=== PATIENT | female | born 1960 | race Caucasian/White ===

== ENCOUNTER 2018-12-02 22:48 | Inpatient (IN) | payer OTHER ==
[~2018-12-02] VITALS: Ht 147.3 cm; Wt 83.0 kg
[2018-12-03] VITALS: BP 160/80; PULSE 82; RESP 18
[2018-12-03] MEDS: GABAPENTIN 300 MG CAP PO SCH ×2 (01:00→21:11)
[2018-12-03] MEDS ORDERED: GLUCAGON 1 MG INJ IM PRN (01:00)
[2018-12-03] MEDS ORDERED: ONDANSETRON 4 MG INJ IV PRN (01:00)
[2018-12-03] MEDS ORDERED: GLUCOSE GEL 15 GRAM TUBE PO PRN ×2 (01:00)
[2018-12-03] MEDS ORDERED: GLUCOSE GEL 15 GRAM TUBE BUCCAL PRN (01:00)
[2018-12-03] MEDS ORDERED: DEXTROSE 50% 50 ML SYRINGE IV PRN ×2 (01:00)
[2018-12-03] MEDS: SOD CHLORIDE 0.9% 1,000 ML IV SCH ×2 (01:38→19:38)
[2018-12-03 02:00] VITALS: BP 137/63; PULSE 87; RESP 18
[2018-12-03] MEDS: ACCU-CHEK XX SCH (02:00)
[2018-12-03] MEDS: PANTOPRAZOLE 40 MG INJ IV SCH (05:33)
[2018-12-03] MEDS: ASPIRIN (EC) 81 MG TAB PO SCH (08:17)
[2018-12-03] MEDS: BENAZEPRIL 40 MG TAB PO SCH (08:17)
[2018-12-03] MEDS: INSULIN ASPART [NOVOLOG] 3 ML PEN SC SCH ×5 (08:19→21:20)
[2018-12-03 08:34] VITALS: BP 140/66; PULSE 99; RESP 18
[2018-12-03] MEDS: EZETIMIBE 10 MG TAB PO SCH (10:47)
[2018-12-03 14:12] VITALS: BP 134/62; PULSE 88; RESP 18
[2018-12-03] MEDS ORDERED: ASC500 PO (14:17)
[2018-12-03] MEDS ORDERED: GABA300C16 PO (14:17)
[2018-12-03] MEDS ORDERED: FER325 PO (14:18)
[2018-12-03] MEDS ORDERED: HYDR25TA6 PO (14:19)
[2018-12-03] MEDS ORDERED: OMEG1CAP90 PO (14:21)
[2018-12-03] MEDS ORDERED: AMLO-147 PO (14:22)
[2018-12-03] MEDS ORDERED: DULO30CA47 PO (14:24)
[2018-12-03] MEDS ORDERED: ASPI-817 PO (14:24)
[2018-12-03] MEDS ORDERED: LANT3I SC (14:27)
[2018-12-03] MEDS ORDERED: ATOR-2 PO (14:27)
[2018-12-03] MEDS: CEFTRIAXONE 1 GM/50 ML (PMX) 50 ML IVPB SCH (16:15)
--- NOTE | 2018-12-03 16:47 | HP ---
DATE OF ADMISSION: 12/02/2018 REASON FOR ADMISSION: The patient is transferred from [facility] due to insurance reasons. HISTORY OF PRESENT ILLNESS: This is a 58-year-old female with a past medical history of diabetes, hy pertension, hyperlipidemia, who presented to the [facility] on 12/02/2018 after being earl t by the family member. There, according to the patient, every time she is coughing, she is having p ain in the back. The patient has been coughing a lot. According to the patient, also she had episod e of nausea and vomiting yesterday. She went to [facility] where they checked for her tropo candelario which was negative. Patient had sodium 131, potassium 4.2, chloride 92, bicarbonate 24, BUN of 2 5, creatinine 1.49. Lipase was, however, elevated at 96. UA showed 500 glucose, nitrite negative. White count 6.0, hemoglobin 13.2, platelet count 240. The patient had a CT of the abdomen and pelvis that showed probable noncalcified and calcified granuloma in both lung bases, considerable stool dif fusely throughout the colon, hysterectomy and chest x-ray with some bibasilar atelectasis and the pat ient was sent in due to insurance reasons. LFTs were within normal limit. The patient was sent for dehydration. PAST MEDICAL HISTORY: 1. Diabetes. 2. Hypertension. 3. Hyperlipidemia. 4. Obesity. 5. Peripheral neuropathy. ALLERGIES: NONE. 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 HOME MEDICATIONS: 1. Aspirin. 2. Lipitor 80. 3. Benazepril 40. 4. Zetia 10. 5. Gabapentin. 6. Hydrochlorothiazide 25. 7. Lantus. 8. Janumet. SOCIAL HISTORY: The patient used to smoke before, stopped smoking many years ago. Denies any alcoho l or any recreational drug use. Currently lives at home with her mom and sister. FAMILY HISTORY: No history of heart disease. REVIEW OF SYSTEMS: The patient complained of chronic cough. Has some abdominal pain to the back. H as some episodes of vomiting. Denied any headache, any blurry vision, any chest pain, any shortness of breath, any orthopnea, PND, any lower extremity edema. Denies any hematemesis, any melena, any bl ood per rectum. PHYSICAL EXAMINATION: VITAL SIGNS: Currently temperature 100.6, pulse 88, respirations 18, blood pressure 134/62, saturati ng 97% on room air. GENERAL: The patient is awake, alert, oriented, does not appear to be in any acute distress. HEENT: Pupils equal, round, reactive to light. NECK: Supple. No JVD. HEART: Regular rate and rhythm. LUNGS: Clear to auscultation bilaterally. ABDOMEN: Soft, some tenderness present in the epigastric region. EXTREMITIES: No clubbing, cyanosis, or edema. LABORATORY DATA: Sodium 138, potassium 4.1, chloride 98, bicarbonate 28, BUN of 21, creatinine 0.98, glucose is 281. LFTs within normal limit. White count of 4.6, hemoglobin 12.9, platelet count of 2 17. IMAGIN. The patient had a chest x-ray there that showed probable atelectasis. 2. The patient had a UA at [facility] which was negative. The patient also had a CT of the abdomen and pelvis that showed status post hysterectomy, stool burden and probable noncalcified and calcified granuloma in both the lung bases, old granulomatous calcification. ASSESSMENT: This is a 58-year-old female presenting with: 1. Abdominal pain radiating to the back. The patient had elevated lipase at the outside hospital, L FTs within normal limits, likely secondary to pancreatitis. 2. Fevers, source questionable, possible pneumonia. We will repeat a UA. 3. Diabetes, uncontrolled. 4. Acute renal failure, likely secondary to dehydration, which is resolved. 5. Hypertension. 6. Hyperlipidemia. 7. Obesity. 8. Peripheral neuropathy. PLAN: At this period of time, the patient is admitted to med-surg. We will continue the patient on home medications. Will start the patient on IV antibiotics. Will send for UA, urine cultures, blood cultures. We will also get an abdominal ultrasound to see the possibility of gallstones. We will r epeat the lipase. Rest of the treatment will depend on the patient's hospitalization course. Dictated By: ABIGAIL ATKINSON/YULI Conf#: [id number] DID#: [id number] CC: HEATHER BURRELL MD;*End*
[2018-12-03] MEDS ORDERED: INSULIN GLARGINE [LANTus] (100 UNITS/ML) SYG SC SCH (20:00)
[2018-12-03 20:04] VITALS: BP 138/65; PULSE 91; RESP 16
[2018-12-03] MEDS: ATORVASTATIN 80 MG TAB PO SCH (21:11)
[2018-12-03] MEDS: ACETAMINOPHEN 325 MG TAB PO PRN (21:11)
[2018-12-04] MEDS ORDERED: ACCU-CHEK XX SCH (02:00)
[2018-12-04] MEDS: ACCU-CHEK XX SCH (02:00)
[2018-12-04 02:41] VITALS: BP 104/56; PULSE 80; RESP 18
[2018-12-04] MEDS: PANTOPRAZOLE 40 MG INJ IV SCH (06:27)
[2018-12-04 08:00] VITALS: BP 173/74; PULSE 87; RESP 20
[2018-12-04] MEDS: INSULIN ASPART [NOVOLOG] 3 ML PEN SC SCH ×6 (08:02→18:00)
[2018-12-04] MEDS: ASPIRIN (EC) 81 MG TAB PO SCH (08:03)
[2018-12-04] MEDS: ACETAMINOPHEN 325 MG TAB PO PRN (08:03)
[2018-12-04] MEDS: EZETIMIBE 10 MG TAB PO SCH (08:03)
[2018-12-04] MEDS: BENAZEPRIL 40 MG TAB PO SCH (08:04)
[2018-12-04 09:30] VITALS: BP 165/85; PULSE 80; RESP 16
[2018-12-04] MEDS: metroNIDAZOLE 500 MG/NS (PMX) 100 ML IVPB SCH ×3 (11:14→21:48)
--- NOTE | 2018-12-04 11:23 | PN ---
Date/Time of Note Date/Time of Note DATE: 12/04/18 TIME: 11:15 Assessment/Plan VTE Prophylaxis Risk score (from Ns)>0 risk: 3 SCD applied (from Ns): Yes Pharmacological prophylaxis: LMWH Lines/Catheters IV Catheter Type (from [facility]): Peripheral IV Assessment/Plan Hospital Course 1. Abdominal pain radiating to the back. The patient had elevated lipase at the outside hospital, LFTs within normal limits, likely secondary to pancreatitis. 2. Fevers, source questionable, possible pneumonia. 3. Diabetes mellitus type II, uncontrolled. 4. Acute renal failure, likely secondary to dehydration, which is resolved. 5. Hypertension. 6. Hyperlipidemia. 7. Obesity. 8. Peripheral neuropathy. 9. S/p hysterectomy Assessment/Plan - med-surg. -waiting for abd. US -pt might need MRCP -chest xray clear -hypoglycemic control -GI dr Sanchez , aware - continue the patient on home medications. -c/w IV antibiotics metronidazole/Rocephin - UA is negative - urine cultures waiting , - blood cultures drawn. - abdominal ultrasound to see the possibility of gallstones. - lipase. -DVT prophylaxis Start Lovenox tmv -GI prophylaxis Protonix Result Diagram: 12/04/18 0551 12/04/18 0551 Results 24hrs Laboratory Tests Test 12/03/18 12:09 12/03/18 16:54 12/03/18 21:10 12/03/18 22:50 Bedside Glucose 244 H 298 H 256 H Urine Color YELLOW Urine Clarity CLEAR Urine pH 5.0 Urine Specific 1.021 [place] Urine Ketones TRACE A Urine Nitrite NEGATIVE Urine Bilirubin NEGATIVE Urine Urobilinogen NEGATIVE Urine Leukocyte NEGATIVE Esterase Urine Microscopic 1 RBC Urine Microscopic 2 WBC Urine Bacteria FEW A Urine Mucus FEW A Urine Hemoglobin NEGATIVE Urine Glucose 3+ H Urine Total Protein 2+ H Test 12/04/18 01:40 12/04/18 05:51 12/04/18 07:59 Bedside Glucose 232 H 318 H White Blood Count 5.5 Red Blood Count 4.08 L Hemoglobin 11.9 L Hematocrit 37.6 Mean Corpuscular 92.2 Volume Mean Corpuscular 29.2 Hemoglobin Mean Corpuscular 31.6 L Hemoglobin Concent Red Cell 12.2 Distribution Width Platelet Count 188 Mean Platelet Volume 10.4 Immature 0.400 Granulocytes % Neutrophils % 69.6 Lymphocytes % 18.6 Monocytes % 11.2 H Eosinophils % 0.0 Basophils % 0.2 Nucleated Red Blood 0.0 Cells % Immature 0.020 Granulocytes # Neutrophils # 3.9 Lymphocytes # 1.0 Monocytes # 0.6 Eosinophils # 0.0 Basophils # 0.0 Nucleated Red Blood 0.0 Cells # Sodium Level 137 Potassium Level 4.5 Chloride Level 103 Carbon Dioxide Level 27 Anion Gap 7 Blood Urea Nitrogen 20 Creatinine 0.89 Est Glomerular > 60 Filtrat Rate mL/min Glucose Level 270 H Calcium Level 7.9 L Phosphorus Level 2.6 Magnesium Level 2.0 Subjective 24 Hr Interval Summary Respiratory: no complaints Gastrointestinal: decreased appetite, nausea; No no complaints, No blood, No diarrhea, No flatus, No passing stool, No vomiting, No other Genitourinary: no complaints Exam/Review of Systems Exam Vitals Vital Signs Date Temp Pulse Resp B/P (MAP) Pulse Ox O2 O2 Flow FiO2 Time Delivery Rate 12/04/18 98.3 09:00 12/04/18 87 20 173/74 96 08:00 (107) 12/04/18 Room Air 02:41 Intake and Output 12/03/18 12/03/18 12/04/18 1515:00 23:00 07:00 IntakeIntake Total 820 ml 1420 ml 750 ml OutputOutput Total 450 ml BalanceBalance 820 ml 970 ml 750 ml Constitutional: alert, oriented Respiratory: clear to auscultation Cardiovascular: regular rate and rhythm Gastrointestinal: soft, nl liver, spleen, non-tender, ascites, bowel sounds, distended, firm, hepatomegaly, mass, rebound or guarding, splenomegaly, surgical scars, tender (left upper quadrant), other Results Results 24hrs Laboratory Tests Test 12/03/18 12:09 12/03/18 16:54 12/03/18 21:10 12/03/18 22:50 Bedside Glucose 244 H 298 H 256 H Urine Color YELLOW Urine Clarity CLEAR Urine pH 5.0 Urine Specific 1.021 [place] Urine Ketones TRACE A Urine Nitrite NEGATIVE Urine Bilirubin NEGATIVE Urine Urobilinogen NEGATIVE Urine Leukocyte NEGATIVE Esterase Urine Microscopic 1 RBC Urine Microscopic 2 WBC Urine Bacteria FEW A Urine Mucus FEW A Urine Hemoglobin NEGATIVE Urine Glucose 3+ H Urine Total Protein 2+ H Test 12/04/18 01:40 12/04/18 05:51 12/04/18 07:59 Bedside Glucose 232 H 318 H White Blood Count 5.5 Red Blood Count 4.08 L Hemoglobin 11.9 L Hematocrit 37.6 Mean Corpuscular 92.2 Volume Mean Corpuscular 29.2 Hemoglobin Mean Corpuscular 31.6 L Hemoglobin Concent Red Cell 12.2 Distribution Width Platelet Count 188 Mean Platelet Volume 10.4 Immature 0.400 Granulocytes % Neutrophils % 69.6 Lymphocytes % 18.6 Monocytes % 11.2 H Eosinophils % 0.0 Basophils % 0.2 Nucleated Red Blood 0.0 Cells % Immature 0.020 Granulocytes # Neutrophils # 3.9 Lymphocytes # 1.0 Monocytes # 0.6 Eosinophils # 0.0 Basophils # 0.0 Nucleated Red Blood 0.0 Cells # Sodium Level 137 Potassium Level 4.5 Chloride Level 103 Carbon Dioxide Level 27 Anion Gap 7 Blood Urea Nitrogen 20 Creatinine 0.89 Est Glomerular > 60 Filtrat Rate mL/min Glucose Level 270 H Calcium Level 7.9 L Phosphorus Level 2.6 Magnesium Level 2.0 Medications Medication Current Medications Atorvastatin Calcium (Lipitor) 80 mg HS PO Last administered on 12/03/18 21:11; Admin Dose 80 MG; Start 12/03/18 at 21:00 Aspirin (Halfprin) 81 mg DAILY PO Last administered on 12/04/18 08:03; Admin Dose 81 MG; Start 12/03/18 at 09:00 Benazepril HCl (Lotensin) 40 mg DAILY PO Last administered on 12/04/18 08:04; Admin Dose 40 MG; Start 12/03/18 at 09:00 EZETIMIBE (Zetia) 10 mg DAILY PO Last administered on 12/04/18 08:03; Admin Dose 10 MG; Start 12/03/18 at 09:00 Gabapentin (Neurontin) 300 mg QHS PO Last administered on 12/03/18 21:11; Admin Dose 300 MG; Start 12/03/18 at 01:00 Diagnostic Test (Pha) (Accu-Chek) 1 ea 02 XX ; Start 12/03/18 at 02:00 Insulin Aspart (Novolog Insulin Pen) NOVOLOG *MODERATE* ALGORITHM WITH MEALS BEDTIME SC Last administered on 12/04/18 08:02; Admin Dose 8 UNIT; Start 12/03/18 at 08:00 Ondansetron HCl (Zofran Inj) 4 mg Q6H PRN IV NAUSEA AND/OR VOMITING; Start 12/03/18 at 01:00 Acetaminophen (Tylenol Tab) 650 mg Q6H PRN PO MILD PAIN(1-3)OR ELEVATED TEMP Last administered on 12/04/18at 08:03; Admin Dose 650 MG; Start 12/03/18 at 01:00 Sodium Chloride 1,000 ml @ 50 mls/hr Q20H IV Last administered on 12/03/18at 19:38; Admin Dose 50 MLS/HR; Start 12/03/18 at 01:00 Pantoprazole (Protonix Iv) 40 mg DAILY@06 IV Last administered on 12/04/18at 06:27; Admin Dose 40 MG; Start 12/03/18 at 06:00 Miscellaneous Information 1 ea NOTE XX ; Start 12/03/18 at 01:00 Glucose (Glutose) 15 gm Q15M PRN PO DECREASED GLUCOSE; Start 12/03/18 at 01:00 Glucose (Glutose) 22.5 gm Q15M PRN PO DECREASED GLUCOSE; Start 12/03/18 at 01:00 Dextrose (D50w Syringe) 25 ml Q15M PRN IV DECREASED GLUCOSE; Start 12/03/18 at 01:00 Dextrose (D50w Syringe) 50 ml Q15M PRN IV DECREASED GLUCOSE; Start 12/03/18 at 01:00 Glucagon (Glucagen) 1 mg Q15M PRN IM DECREASED GLUCOSE; Start 12/03/18 at 01:00 Glucose (Glutose) 15 gm Q15M PRN BUCCAL DECREASED GLUCOSE; Start 12/03/18 at 01:00 Ceftriaxone Sodium 50 ml @ 100 mls/hr Q24H IVPB Last administered on 12/03/18at 16:15; Admin Dose 100 MLS/HR; Start 12/03/18 at 14:30 Insulin Glargine (Lantus) 15 units DAILY@2000 SC Last administered on 12/03/18at 21:19; Admin Dose 15 UNITS; Start 12/03/18 at 20:00 Insulin Aspart (Novolog Insulin Pen) 4 unit WITH MEALS SC Last administered on 12/04/18 08:02; Admin Dose 4 UNIT; Start 12/03/18 at 17:35 Metronidazole 100 ml @ 100 mls/hr Q8 IVPB Last administered on 12/04/18at 11:14; Admin Dose 100 MLS/HR; Start 12/04/18 at 09:30 BRODY SCANLON Dec 04, 2018 11:23
[2018-12-04] MEDS: DULOXETINE 30 MG CAP DR PO SCH (11:30)
[2018-12-04 13:28] VITALS: BP 121/59; PULSE 77; RESP 16
[2018-12-04] MEDS: GABAPENTIN 300 MG CAP PO SCH ×2 (14:53→20:37)
[2018-12-04] MEDS: CEFTRIAXONE 1 GM/50 ML (PMX) 50 ML IVPB SCH (15:59)
[2018-12-04] MEDS: SOD CHLORIDE 0.9% 1,000 ML IV SCH (18:00)
--- NOTE | 2018-12-04 18:24 | CONS ---
DATE OF ADMISSION: 12/02/2018 DATE OF CONSULTATION: TYPE OF CONSULTATION: Gastroenterology. From Manuel Cruz MD, to Colette Phan MD. HISTORY OF PRESENT ILLNESS: The patient is a 58-year-old female with a history of hypertension, hype rlipidemia, went to the [facility] on 12/02/2018 complaining of back pain and coughing. She staye d in the ER then patient also complained of abdominal pain, nausea and vomiting. She had a CAT scan done which showed granuloma in both lungs. Pancreas was normal. She was status post hysterectomy. Subsequently, she got transferred to this facility for further management. Here, her lipase came hig h at 349, so GI consult was called in for possible pancreatitis. No chest pain or shortness of breat h now. No GI bleeding, no fever, no chills. PAST MEDICAL HISTORY: Diabetes mellitus, hypertension, hyperlipidemia, peripheral neuropathy and obe sity. PAST SURGICAL HISTORY: Hysterectomy. ALLERGIES: NONE. HOME MEDICATIONS: Reviewed. She is on: 1. Janumet. 2. Lantus. 3. Hydrochlorothiazide. 4. Gabapentin. 5. Zetia. 6. Benazepril. 7. Lipitor. 8. Aspirin. SOCIAL HISTORY: The patient used to smoke, stopped smoking many years ago. No alcohol, no recreatio nal drugs. REVIEW OF SYSTEMS: Negative. PHYSICAL EXAMINATION: GENERAL: Well built, nourished, not in distress. VITAL SIGNS: Stable. HEENT: Unremarkable. NECK: Supple. No thyromegaly, no lymphadenopathy. CARDIOVASCULAR: No murmur, gallop or click. LUNGS: Clear. EXTREMITIES: No edema. CENTRAL NERVOUS SYSTEMS: Grossly within normal limits. LABORATORY DATA: LFTs all within normal limits. CBC was stable. IMPRESSION: 1. Abdominal pain with mild elevation of lipase. The patient may have mild pancreatitis. The etiol ogy is unclear, maybe drug-induced. Both hydrochlorothiazide and Januvia are known to do that. 2. Diabetes mellitus. 3. Renal failure secondary to dehydration. 4. Hypertension. 5. Hyperlipidemia. 6. Obesity. 7. Peripheral neuropathy. PLAN: Optimize the blood sugar. Continue per present care. We will monitor lipase. If it keeps go ing up, then we will do further investigation in the form of MRCP. At this point, hydrochlorothiazid e and Janumet both has been stopped. Dictated By: MANUEL CRUZ MD PJ/YULI Conf#: [id number] DID#: [id number] CC: HEATHER BURRELL MD;*EndCC*
[2018-12-04 20:00] VITALS: BP 146/91; PULSE 76; RESP 18
[2018-12-04] MEDS: INSULIN GLARGINE [LANTus] (100 UNITS/ML) SYG SC SCH (20:37)
[2018-12-04] MEDS: ATORVASTATIN 80 MG TAB PO SCH (20:37)
[2018-12-05] MEDS: ACCU-CHEK XX SCH (00:03)
[2018-12-05 02:00] VITALS: BP 152/70; PULSE 80; RESP 18
[2018-12-05] MEDS: metroNIDAZOLE 500 MG/NS (PMX) 100 ML IVPB SCH ×3 (05:23→22:27)
[2018-12-05] MEDS: PANTOPRAZOLE 40 MG INJ IV SCH (05:24)
[2018-12-05] MEDS: INSULIN ASPART [NOVOLOG] 3 ML PEN SC SCH ×7 (05:24→17:25)
[2018-12-05] MEDS: SOD CHLORIDE 0.9% 1,000 ML IV SCH ×2 (05:24→17:27)
[2018-12-05 08:00] VITALS: BP 167/72; PULSE 75; RESP 18
[2018-12-05] MEDS: DULOXETINE 30 MG CAP DR PO SCH ×2 (08:23→09:13)
[2018-12-05] MEDS: ASPIRIN (EC) 81 MG TAB PO SCH ×2 (08:23→09:16)
[2018-12-05] MEDS: GABAPENTIN 300 MG CAP PO SCH ×3 (08:24→22:27)
[2018-12-05] MEDS: EZETIMIBE 10 MG TAB PO SCH ×2 (08:24→09:13)
[2018-12-05] MEDS: AMLODIPINE 10 MG TAB PO SCH ×2 (08:24→09:13)
[2018-12-05] MEDS: BENAZEPRIL 40 MG TAB PO SCH ×2 (08:24→09:13)
--- NOTE | 2018-12-05 09:24 | PN ---
Date/Time of Note Date/Time of Note DATE: 12/05/18 TIME: 09:19 Assessment/Plan VTE Prophylaxis Risk score (from Ns)>0 risk: 3 SCD applied (from Ns): Yes Pharmacological prophylaxis: LMWH Lines/Catheters IV Catheter Type (from [facility]): Peripheral IV Assessment/Plan Hospital Course 1. Abdominal pain radiating to the back. The patient had elevated lipase at the outside hospital, LFTs within normal limits, likely secondary to pancreatitis. 2. Fevers, source questionable, possible pneumonia. 3. Diabetes mellitus type II, now controlled BS. 4. Acute renal failure, likely secondary to dehydration, which is resolved. 5. Hypertension. 6. Hyperlipidemia. 7. Obesity. 8. Peripheral neuropathy. 9. S/p hysterectomy Assessment/Plan - med-surg. -abd. US; Possible normal pancreas with mildly dilated pancreatic duct. -pt might need MRCP -chest xray clear -hypoglycemic control -GI dr Sanchez , aware -c/w IV antibiotics metronidazole/Rocephin - UA is negative - urine cultures waiting , - blood cultures negative so far - lipase is normal now. -DVT prophylaxis Lovenox -GI prophylaxis Protonix Result Diagram: 12/05/18 0442 12/05/18 0442 Results 24hrs Laboratory Tests Test 12/04/18 12:09 12/04/18 17:59 12/04/18 20:35 12/05/18 00:21 Bedside Glucose 180 148 162 138 Test 12/05/18 04:42 12/05/18 05:23 White Blood Count 4.3 #L Red Blood Count 4.10 L Hemoglobin 11.9 L Hematocrit 36.9 L Mean Corpuscular 90.0 Volume Mean Corpuscular 29.0 Hemoglobin Mean Corpuscular 32.2 Hemoglobin Concent Red Cell 12.2 Distribution Width Platelet Count 188 Mean Platelet Volume 10.4 Immature 0.200 Granulocytes % Neutrophils % 54.2 Lymphocytes % 34.6 Monocytes % 10.8 Eosinophils % 0.0 Basophils % 0.2 Nucleated Red Blood 0.0 Cells % Immature 0.010 Granulocytes # Neutrophils # 2.4 Lymphocytes # 1.5 Monocytes # 0.5 Eosinophils # 0.0 Basophils # 0.0 Nucleated Red Blood 0.0 Cells # Prothrombin Time 13.0 Prothrombin Time 1.0 Ratio INR International 0.97 Normalized Ratio Activated 32.6 Partial Thromboplast Time Sodium Level 136 Potassium Level 4.0 Chloride Level 100 Carbon Dioxide Level 27 Anion Gap 9 Blood Urea Nitrogen 15 Creatinine 0.75 Est Glomerular > 60 Filtrat Rate mL/min Glucose Level 143 # Calcium Level 7.9 L Total Bilirubin 0.2 Direct Bilirubin 0.00 Indirect Bilirubin 0.2 Aspartate Amino 29 Transf (AST/SGOT) Alanine 27 Aminotransferase (AL T/SGPT) Alkaline Phosphatase 85 Total Protein 6.3 Albumin 3.2 L Globulin 3.10 Albumin/Globulin 1.03 Ratio Lipase 238 Bedside Glucose 134 Subjective 24 Hr Interval Summary Respiratory: cough Gastrointestinal: pain; No no complaints, No blood, No constipation, No decreased appetite, No flatus, No passing stool, No other Musculoskeletal: back pain Exam/Review of Systems Exam Vitals Vital Signs Date Temp Pulse Resp B/P (MAP) Pulse Ox O2 O2 Flow FiO2 Time Delivery Rate 12/05/18 99.0 75 18 167/72 93 Room Air 08:00 (103) Intake and Output 12/04/18 12/04/18 12/05/18 1515:00 23:00 07:00 IntakeIntake Total 450 ml 650 ml 700 ml BalanceBalance 450 ml 650 ml 700 ml Constitutional: alert, oriented Eyes: nl conjunctiva Respiratory: clear to auscultation, normal air movement Cardiovascular: regular rate and rhythm Gastrointestinal: soft, rebound or guarding (left upper quadrant), other Results Results 24hrs Laboratory Tests Test 12/04/18 12:09 12/04/18 17:59 12/04/18 20:35 12/05/18 00:21 Bedside Glucose 180 148 162 138 Test 12/05/18 04:42 12/05/18 05:23 White Blood Count 4.3 #L Red Blood Count 4.10 L Hemoglobin 11.9 L Hematocrit 36.9 L Mean Corpuscular 90.0 Volume Mean Corpuscular 29.0 Hemoglobin Mean Corpuscular 32.2 Hemoglobin Concent Red Cell 12.2 Distribution Width Platelet Count 188 Mean Platelet Volume 10.4 Immature 0.200 Granulocytes % Neutrophils % 54.2 Lymphocytes % 34.6 Monocytes % 10.8 Eosinophils % 0.0 Basophils % 0.2 Nucleated Red Blood 0.0 Cells % Immature 0.010 Granulocytes # Neutrophils # 2.4 Lymphocytes # 1.5 Monocytes # 0.5 Eosinophils # 0.0 Basophils # 0.0 Nucleated Red Blood 0.0 Cells # Prothrombin Time 13.0 Prothrombin Time 1.0 Ratio INR International 0.97 Normalized Ratio Activated 32.6 Partial Thromboplast Time Sodium Level 136 Potassium Level 4.0 Chloride Level 100 Carbon Dioxide Level 27 Anion Gap 9 Blood Urea Nitrogen 15 Creatinine 0.75 Est Glomerular > 60 Filtrat Rate mL/min Glucose Level 143 # Calcium Level 7.9 L Total Bilirubin 0.2 Direct Bilirubin 0.00 Indirect Bilirubin 0.2 Aspartate Amino 29 Transf (AST/SGOT) Alanine 27 Aminotransferase (AL T/SGPT) Alkaline Phosphatase 85 Total Protein 6.3 Albumin 3.2 L Globulin 3.10 Albumin/Globulin 1.03 Ratio Lipase 238 Bedside Glucose 134 Medications Medication Current Medications Atorvastatin Calcium (Lipitor) 80 mg HS PO Last administered on 12/03/18 21:11; Admin Dose 80 MG; Start 12/03/18 at 21:00 Benazepril HCl (Lotensin) 40 mg DAILY PO Last administered on 12/05/18 09:13; Admin Dose 40 MG; Start 12/03/18 at 09:00 EZETIMIBE (Zetia) 10 mg DAILY PO Last administered on 12/05/18 09:13; Admin Dose 10 MG; Start 12/03/18 at 09:00 Diagnostic Test (Pha) (Accu-Chek) 1 ea 02 XX ; Start 12/03/18 at 02:00 Ondansetron HCl (Zofran Inj) 4 mg Q6H PRN IV NAUSEA AND/OR VOMITING; Start 12/03/18 at 01:00 Acetaminophen (Tylenol Tab) 650 mg Q6H PRN PO MILD PAIN(1-3)OR ELEVATED TEMP Last administered on 12/04/18 08:03; Admin Dose 650 MG; Start 12/03/18 at 01:00 Sodium Chloride 1,000 ml @ 70 mls/hr [id number] IV Last administered on 12/04/18 18:00; Admin Dose 70 MLS/HR; Start 12/03/18 at 01:00 Pantoprazole (Protonix Iv) 40 mg DAILY@06 IV Last administered on 12/05/18 05:24; Admin Dose 40 MG; Start 12/03/18 at 06:00 Miscellaneous Information 1 ea NOTE XX ; Start 12/03/18 at 01:00 Glucose (Glutose) 15 gm Q15M PRN PO DECREASED GLUCOSE; Start 12/03/18 at 01:00 Glucose (Glutose) 22.5 gm Q15M PRN PO DECREASED GLUCOSE; Start 12/03/18 at 01:00 Dextrose (D50w Syringe) 25 ml Q15M PRN IV DECREASED GLUCOSE; Start 12/03/18 at 01:00 Dextrose (D50w Syringe) 50 ml Q15M PRN IV DECREASED GLUCOSE; Start 12/03/18 at 01:00 Glucagon (Glucagen) 1 mg Q15M PRN IM DECREASED GLUCOSE; Start 12/03/18 at 01:00 Glucose (Glutose) 15 gm Q15M PRN BUCCAL DECREASED GLUCOSE; Start 12/03/18 at 01:00 Ceftriaxone Sodium 50 ml @ 100 mls/hr Q24H IVPB Last administered on 12/04/18at 15:59; Admin Dose 100 MLS/HR; Start 12/03/18 at 14:30 Insulin Aspart (Novolog Insulin Pen) 4 unit WITH MEALS SC Last administered on 12/04/18at 08:02; Admin Dose 4 UNIT; Start 12/03/18 at 17:35 Metronidazole 100 ml @ 100 mls/hr Q8 IVPB Last administered on 12/05/18at 05:23; Admin Dose 100 MLS/HR; Start 12/04/18 at 09:30 Hydralazine HCl (Apresoline) 10 mg Q8 PO ; Start 12/04/18 at 14:00 Insulin Glargine (Lantus) 20 units DAILY@2000 SC Last administered on 12/04/18at 20:37; Admin Dose 20 UNITS; Start 12/04/18 at 20:00 Amlodipine Besylate (Norvasc) 10 mg DAILY PO Last administered on 12/05/18at 09:13; Admin Dose 10 MG; Start 12/05/18 at 09:00 Aspirin (Halfprin) 81 mg DAILY PO Last administered on 12/05/18at 09:16; Admin Dose 81 MG; Start 12/05/18 at 09:00 Duloxetine HCl (Cymbalta) 30 mg DAILY PO Last administered on 12/05/18at 09:13; Admin Dose 30 MG; Start 12/04/18 at 11:30 Gabapentin (Neurontin) 300 mg TID PO ; Start 12/04/18 at 13:00 Insulin Aspart (Novolog Insulin Pen) NOVOLOG *MODERATE* ALGORITHM Q6 SC Last administered on 12/04/18at 12:12; Admin Dose 2 UNIT; Start 12/04/18 at 12:00 BRODY SCANLON Dec 05, 2018 09:24
[2018-12-05] MEDS: ENOXAPARIN 40 MG/0.4 ML SYG SC SCH (09:52)
[2018-12-05 14:06] VITALS: BP 111/70; PULSE 75; RESP 17
--- NOTE | 2018-12-05 14:07 | CONS ---
Assessment/Plan Assessment/Plan Assessment/Plan (Daily) IMPRESSION: 1. Abdominal pain with mild elevation of lipase. The patient may have mild pancreatitis. The etiology is unclear, maybe drug-induced. Both hydrochlorothiazide and Januvia are known to do that. Pancreatitis better lipase is back to normal 2. Diabetes mellitus. 3. Renal failure secondary to dehydration. 4. Hypertension. 5. Hyperlipidemia. 6. Obesity. 7. Peripheral neuropathy. Plan liquid diet and advance it slowly MRCP for dilated pancreatic duct Consultation Date/Type/Reason Admit Date/Time Dec 02, 2018 at 23:00 Initial Consult Date Date/Time of Note DATE: 12/05/18 TIME: 14:05 24 HR Interval Summary Free Text/Dictation Pain is minimal No nausea no vomiting Constitutional: improved Exam/Review of Systems Exam Vitals Vital Signs Date Temp Pulse Resp B/P (MAP) Pulse Ox O2 O2 Flow FiO2 Time Delivery Rate 12/05/18 99.0 75 18 167/72 93 Room Air 08:00 (103) Intake and Output 12/04/18 12/04/18 12/05/18 1414:59 22:59 06:59 IntakeIntake Total 450 ml 650 ml 700 ml BalanceBalance 450 ml 650 ml 700 ml Constitutional: alert, oriented, well developed Psych: no complaints, nl mood/affect Head: normocephalic, atraumatic Eyes: nl conjunctiva, EOMI, nl lids, nl sclera, PERRL ENMT: nl external ears & nose, nl lips & teeth, nl nasal mucosa & septum Neck: supple, non-tender Respiratory: clear to auscultation, normal air movement Cardiovascular: regular rate and rhythm, nl pulses Gastrointestinal: soft, nl liver, spleen, non-tender Musculoskeletal: nl extremities to inspection, nl gait and stance Extremities: normal pulses 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, nl mental status, nl speech, nl strength Skin: nl turgor; No rash or lesions Lymph: nl lymph nodes Results Result Diagram: 12/05/1844112/05/182 Results 24hrs Laboratory Tests Test 12/04/18 17:59 12/04/18 20:35 12/05/18 00:21 12/05/18 04:42 Bedside Glucose 148 162 138 White Blood Count 4.3 #L Red Blood Count 4.10 L Hemoglobin 11.9 L Hematocrit 36.9 L Mean Corpuscular 90.0 Volume Mean Corpuscular 29.0 Hemoglobin Mean Corpuscular 32.2 Hemoglobin Concent Red Cell 12.2 Distribution Width Platelet Count 188 Mean Platelet Volume 10.4 Immature 0.200 Granulocytes % Neutrophils % 54.2 Lymphocytes % 34.6 Monocytes % 10.8 Eosinophils % 0.0 Basophils % 0.2 Nucleated Red Blood 0.0 Cells % Immature 0.010 Granulocytes # Neutrophils # 2.4 Lymphocytes # 1.5 Monocytes # 0.5 Eosinophils # 0.0 Basophils # 0.0 Nucleated Red Blood 0.0 Cells # Prothrombin Time 13.0 Prothrombin Time 1.0 Ratio INR International 0.97 Normalized Ratio Activated 32.6 Partial Thromboplast Time Sodium Level 136 Potassium Level 4.0 Chloride Level 100 Carbon Dioxide Level 27 Anion Gap 9 Blood Urea Nitrogen 15 Creatinine 0.75 Est Glomerular > 60 Filtrat Rate mL/min Glucose Level 143 # Calcium Level 7.9 L Total Bilirubin 0.2 Direct Bilirubin 0.00 Indirect Bilirubin 0.2 Aspartate Amino 29 Transf (AST/SGOT) Alanine 27 Aminotransferase (AL T/SGPT) Alkaline Phosphatase 85 Total Protein 6.3 Albumin 3.2 L Globulin 3.10 Albumin/Globulin 1.03 Ratio Lipase 238 Test 12/05/18 05:23 12/05/18 11:37 Bedside Glucose 134 133 Medications Medication Current Medications Atorvastatin Calcium (Lipitor) 80 mg HS PO Last administered on 12/03/18at 21:11; Admin Dose 80 MG; Start 12/03/18 at 21:00 Benazepril HCl (Lotensin) 40 mg DAILY PO Last administered on 12/05/18at 09:13; Admin Dose 40 MG; Start 12/03/18 at 09:00 EZETIMIBE (Zetia) 10 mg DAILY PO Last administered on 12/05/18at 09:13; Admin Dose 10 MG; Start 12/03/18 at 09:00 Diagnostic Test (Pha) (Accu-Chek) 1 ea 02 XX ; Start 12/03/18 at 02:00 Ondansetron HCl (Zofran Inj) 4 mg Q6H PRN IV NAUSEA AND/OR VOMITING Last administered on 12/05/18at 11:41; Admin Dose 4 MG; Start 12/03/18 at 01:00 Acetaminophen (Tylenol Tab) 650 mg Q6H PRN PO MILD PAIN(1-3)OR ELEVATED TEMP Last administered on 12/04/18at 08:03; Admin Dose 650 MG; Start 12/03/18 at 01:00 Sodium Chloride 1,000 ml @ 70 mls/hr [id number] IV Last administered on 12/04/18at 18:00; Admin Dose 70 MLS/HR; Start 12/03/18 at 01:00 Pantoprazole (Protonix Iv) 40 mg DAILY@06 IV Last administered on 12/05/18at 05:24; Admin Dose 40 MG; Start 12/03/18 at 06:00 Miscellaneous Information 1 ea NOTE XX ; Start 12/03/18 at 01:00 Glucose (Glutose) 15 gm Q15M PRN PO DECREASED GLUCOSE; Start 12/03/18 at 01:00 Glucose (Glutose) 22.5 gm Q15M PRN PO DECREASED GLUCOSE; Start 12/03/18 at 01:00 Dextrose (D50w Syringe) 25 ml Q15M PRN IV DECREASED GLUCOSE; Start 12/03/18 at 01:00 Dextrose (D50w Syringe) 50 ml Q15M PRN IV DECREASED GLUCOSE; Start 12/03/18 at 01:00 Glucagon (Glucagen) 1 mg Q15M PRN IM DECREASED GLUCOSE; Start 12/03/18 at 01:00 Glucose (Glutose) 15 gm Q15M PRN BUCCAL DECREASED GLUCOSE; Start 12/03/18 at 01:00 Ceftriaxone Sodium 50 ml @ 100 mls/hr Q24H IVPB Last administered on 12/04/18at 15:59; Admin Dose 100 MLS/HR; Start 12/03/18 at 14:30 Insulin Aspart (Novolog Insulin Pen) 4 unit WITH MEALS SC Last administered on 12/04/18at 08:02; Admin Dose 4 UNIT; Start 12/03/18 at 17:35 Metronidazole 100 ml @ 100 mls/hr Q8 IVPB Last administered on 12/05/18at 13:12; Admin Dose 100 MLS/HR; Start 12/04/18 at 09:30 Hydralazine HCl (Apresoline) 10 mg Q8 PO Last administered on 12/05/18at 13:10; Admin Dose 10 MG; Start 12/04/18 at 14:00 Insulin Glargine (Lantus) 20 units DAILY@2000 SC Last administered on 12/04/18 20:37; Admin Dose 20 UNITS; Start 12/04/18 at 20:00 Amlodipine Besylate (Norvasc) 10 mg DAILY PO Last administered on 12/05/18 09:13; Admin Dose 10 MG; Start 12/05/18 at 09:00 Aspirin (Halfprin) 81 mg DAILY PO Last administered on 12/05/18 09:16; Admin Dose 81 MG; Start 12/05/18 at 09:00 Duloxetine HCl (Cymbalta) 30 mg DAILY PO Last administered on 12/05/18 09:13; Admin Dose 30 MG; Start 12/04/18 at 11:30 Gabapentin (Neurontin) 300 mg TID PO Last administered on 12/05/18 13:12; Admin Dose 300 MG; Start 12/04/18 at 13:00 Insulin Aspart (Novolog Insulin Pen) NOVOLOG *MODERATE* ALGORITHM Q6 SC Last administered on 12/04/18 12:12; Admin Dose 2 UNIT; Start 12/04/18 at 12:00 Enoxaparin Sodium (Lovenox) 40 mg DAILY SC Last administered on 12/05/18 09:52; Admin Dose 40 MG; Start 12/05/18 at 09:30 MANUEL CRUZ MD Dec 05, 2018 14:07
[2018-12-05] MEDS: CEFTRIAXONE 1 GM/50 ML (PMX) 50 ML IVPB SCH (14:58)
[2018-12-05 20:00] VITALS: BP 153/70; RESP 17
[2018-12-05 20:01] VITALS: BP 153/70; PULSE 72; RESP 17
[2018-12-05] MEDS: ATORVASTATIN 80 MG TAB PO SCH (22:27)
[2018-12-05] MEDS: INSULIN GLARGINE [LANTus] (100 UNITS/ML) SYG SC SCH (22:36)
[2018-12-06] MEDS: ACCU-CHEK XX SCH (01:01)
[2018-12-06 02:00] VITALS: BP 148/65; PULSE 72; RESP 17
[2018-12-06] MEDS: metroNIDAZOLE 500 MG/NS (PMX) 100 ML IVPB SCH ×3 (06:03→22:55)
[2018-12-06] MEDS: PANTOPRAZOLE 40 MG INJ IV SCH (06:03)
[2018-12-06 06:12] VITALS: BP 170/73; PULSE 73
[2018-12-06 08:19] VITALS: BP 115/65; PULSE 69; RESP 18
[2018-12-06] MEDS: DULOXETINE 30 MG CAP DR PO SCH (08:52)
[2018-12-06] MEDS: AMLODIPINE 10 MG TAB PO SCH (08:53)
[2018-12-06] MEDS: ASPIRIN (EC) 81 MG TAB PO SCH (08:53)
[2018-12-06] MEDS: EZETIMIBE 10 MG TAB PO SCH (08:53)
[2018-12-06] MEDS: GABAPENTIN 300 MG CAP PO SCH ×3 (08:53→20:25)
[2018-12-06] MEDS: BENAZEPRIL 40 MG TAB PO SCH (08:54)
[2018-12-06] MEDS: INSULIN ASPART [NOVOLOG] 3 ML PEN SC SCH ×7 (08:58→20:28)
[2018-12-06] MEDS: ENOXAPARIN 40 MG/0.4 ML SYG SC SCH (08:59)
[2018-12-06] MEDS: SOD CHLORIDE 0.9% 1,000 ML IV SCH (12:34)
--- NOTE | 2018-12-06 12:43 | CONS ---
Assessment/Plan Assessment/Plan Assessment/Plan (Daily) IMPRESSION: 1. Abdominal pain with mild elevation of lipase. The patient may have mild pancreatitis. The etiology is unclear, maybe drug-induced. Both hydrochlorothiazide and Januvia are known to do that. Pancreatitis better lipase is back to normal 2. Diabetes mellitus. 3. Renal failure secondary to dehydration. 4. Hypertension. 5. Hyperlipidemia. 6. Obesity. 7. Peripheral neuropathy. Plan liquid diet and advance it slowly MRCP for dilated pancreatic duct, pending Consultation Date/Type/Reason Admit Date/Time Dec 02, 2018 at 23:00 Initial Consult Date Date/Time of Note DATE: 12/06/18 TIME: 12:43 24 HR Interval Summary Constitutional: no complaints, improved Exam/Review of Systems Exam Vitals Vital Signs Date Temp Pulse Resp B/P (MAP) Pulse Ox O2 O2 Flow FiO2 Time Delivery Rate 12/06/18 98.5 69 18 115/65 91 08:19 (82) 12/05/18 Room Air 14:06 Intake and Output 12/05/18 12/05/18 12/06/18 1515:00 23:00 07:00 IntakeIntake Total 100 ml 550 ml 1280 ml BalanceBalance 100 ml 550 ml 1280 ml Constitutional: alert, oriented, well developed Psych: no complaints, nl mood/affect Head: normocephalic, atraumatic Eyes: nl conjunctiva, EOMI, nl lids, nl sclera, PERRL ENMT: nl external ears & nose, nl lips & teeth, nl nasal mucosa & septum Neck: supple, non-tender Respiratory: clear to auscultation, normal air movement Cardiovascular: regular rate and rhythm, nl pulses Gastrointestinal: soft, nl liver, spleen, non-tender Musculoskeletal: nl extremities to inspection, nl gait and stance Extremities: normal pulses 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 intact, nl mental status, nl speech, nl strength Skin: nl turgor; No rash or lesions Lymph: nl lymph nodes Results Result Diagram: 12/06/1844612/06/18446 Results 24hrs Laboratory Tests Test 12/05/18 17:25 12/05/18 22:23 12/06/18 00:43 12/06/18 04:47 Bedside Glucose 95 91 202 White Blood Count 4.1 L Red Blood Count 3.88 L Hemoglobin 11.3 L Hematocrit 35.8 L Mean Corpuscular 92.3 Volume Mean Corpuscular 29.1 Hemoglobin Mean Corpuscular 31.6 L Hemoglobin Concent Red Cell 12.0 Distribution Width Platelet Count 165 Mean Platelet Volume 10.7 H Immature 0.200 Granulocytes % Neutrophils % 48.7 Lymphocytes % 39.2 Monocytes % 11.4 H Eosinophils % 0.0 Basophils % 0.5 Nucleated Red Blood 0.0 Cells % Immature 0.010 Granulocytes # Neutrophils # 2.0 Lymphocytes # 1.6 Monocytes # 0.5 Eosinophils # 0.0 Basophils # 0.0 Nucleated Red Blood 0.0 Cells # Sodium Level 136 Potassium Level 3.9 Chloride Level 101 Carbon Dioxide Level 27 Anion Gap 8 Blood Urea Nitrogen 12 Creatinine 0.72 Est Glomerular > 60 Filtrat Rate mL/min Glucose Level 131 Calcium Level 7.9 L Lipase 219 Test 12/06/18 08:43 Bedside Glucose 156 Medications Medication Current Medications Atorvastatin Calcium (Lipitor) 80 mg HS PO Last administered on 12/05/18 22:27; Admin Dose 80 MG; Start 12/03/18 at 21:00 Benazepril HCl (Lotensin) 40 mg DAILY PO Last administered on 12/06/18 08:54; Admin Dose 40 MG; Start 12/03/18 at 09:00 EZETIMIBE (Zetia) 10 mg DAILY PO Last administered on 12/06/18 08:53; Admin Dose 10 MG; Start 12/03/18 at 09:00 Diagnostic Test (Pha) (Accu-Chek) 1 ea 02 XX ; Start 12/03/18 at 02:00 Ondansetron HCl (Zofran Inj) 4 mg Q6H PRN IV NAUSEA AND/OR VOMITING Last administered on 12/05/18 11:41; Admin Dose 4 MG; Start 12/03/18 at 01:00 Acetaminophen (Tylenol Tab) 650 mg Q6H PRN PO MILD PAIN(1-3)OR ELEVATED TEMP Last administered on 12/04/18 08:03; Admin Dose 650 MG; Start 12/03/18 at 01:00 Sodium Chloride 1,000 ml @ 70 mls/hr [id number] IV Last administered on 12/06/18 12:34; Admin Dose 70 MLS/HR; Start 12/03/18 at 01:00 Pantoprazole (Protonix Iv) 40 mg DAILY@06 IV Last administered on 12/06/18at 06:03; Admin Dose 40 MG; Start 12/03/18 at 06:00 Miscellaneous Information 1 ea NOTE XX ; Start 12/03/18 at 01:00 Glucose (Glutose) 15 gm Q15M PRN PO DECREASED GLUCOSE; Start 12/03/18 at 01:00 Glucose (Glutose) 22.5 gm Q15M PRN PO DECREASED GLUCOSE; Start 12/03/18 at 01:00 Dextrose (D50w Syringe) 25 ml Q15M PRN IV DECREASED GLUCOSE; Start 12/03/18 at 01:00 Dextrose (D50w Syringe) 50 ml Q15M PRN IV DECREASED GLUCOSE; Start 12/03/18 at 01:00 Glucagon (Glucagen) 1 mg Q15M PRN IM DECREASED GLUCOSE; Start 12/03/18 at 01:00 Glucose (Glutose) 15 gm Q15M PRN BUCCAL DECREASED GLUCOSE; Start 12/03/18 at 01:00 Ceftriaxone Sodium 50 ml @ 100 mls/hr Q24H IVPB Last administered on 12/05/18at 14:58; Admin Dose 100 MLS/HR; Start 12/03/18 at 14:30 Insulin Aspart (Novolog Insulin Pen) 4 unit WITH MEALS SC Last administered on 12/06/18at 08:59; Admin Dose 4 UNIT; Start 12/03/18 at 17:35 Metronidazole 100 ml @ 100 mls/hr Q8 IVPB Last administered on 12/06/18at 06:03; Admin Dose 100 MLS/HR; Start 12/04/18 at 09:30 Hydralazine HCl (Apresoline) 10 mg Q8 PO Last administered on 12/06/18at 06:06; Admin Dose 10 MG; Start 12/04/18 at 14:00 Insulin Glargine (Lantus) 20 units DAILY@2000 SC Last administered on 12/05/18at 22:36; Admin Dose 20 UNITS; Start 12/04/18 at 20:00 Amlodipine Besylate (Norvasc) 10 mg DAILY PO Last administered on 12/06/18 08:53; Admin Dose 10 MG; Start 12/05/18 at 09:00 Aspirin (Halfprin) 81 mg DAILY PO Last administered on 12/06/18at 08:53; Admin Dose 81 MG; Start 12/05/18 at 09:00 Duloxetine HCl (Cymbalta) 30 mg DAILY PO Last administered on 12/06/18 08:52; Admin Dose 30 MG; Start 12/04/18 at 11:30 Gabapentin (Neurontin) 300 mg TID PO Last administered on 12/06/18 12:34; Admin Dose 300 MG; Start 12/04/18 at 13:00 Enoxaparin Sodium (Lovenox) 40 mg DAILY SC Last administered on 12/06/18 08:59; Admin Dose 40 MG; Start 12/05/18 at 09:30 Insulin Aspart (Novolog Insulin Pen) NOVOLOG *MODERATE* ALGORITHM WITH MEALS BEDTIME SC Last administered on 12/06/18 08:58; Admin Dose 2 UNIT; Start 12/06/18 at 08:00 MANUEL CRUZ MD Dec 06, 2018 12:43
[2018-12-06 15:16] VITALS: BP 118/58; PULSE 76; RESP 16
--- NOTE | 2018-12-06 17:15 | PN ---
Date/Time of Note Date/Time of Note DATE: 12/06/18 TIME: 17:12 Assessment/Plan VTE Prophylaxis Risk score (from Ns)>0 risk: 2 SCD applied (from [facility] [place]): Yes SCD contraindicated: other Pharmacological prophylaxis: other Pharm contraindication: other Lines/Catheters IV C[facility] Type (from [facility]): Peripheral IV Assessment/Plan Hospital Course 1. Abdominal pain The patient had elevated lipase at the outside hospital, LFTs within normal limits, likely secondary to pancreatitis. 2. poss pancreatitis 3. Diabetes mellitus type II, now controlled BS. 4. Acute renal failure, likely secondary to dehydration, which is resolved. 5. Hypertension. 6. Hyperlipidemia. 7. Obesity. 8. Peripheral neuropathy. 9. S/p hysterectomy plan per gi Result Diagram: 12/06/187 12/06/18 0447 Results 24hrs Laboratory Tests Test 12/05/18 17:25 12/05/18 22:23 12/06/18 00:43 12/06/18 04:47 Bedside Glucose 95 91 202 White Blood Count 4.1 L Red Blood Count 3.88 L Hemoglobin 11.3 L Hematocrit 35.8 L Mean Corpuscular 92.3 Volume Mean Corpuscular 29.1 Hemoglobin Mean Corpuscular 31.6 L Hemoglobin Concent Red Cell 12.0 Distribution Width Platelet Count 165 Mean Platelet Volume 10.7 H Immature 0.200 Granulocytes % Neutrophils % 48.7 Lymphocytes % 39.2 Monocytes % 11.4 H Eosinophils % 0.0 Basophils % 0.5 Nucleated Red Blood 0.0 Cells % Immature 0.010 Granulocytes # Neutrophils # 2.0 Lymphocytes # 1.6 Monocytes # 0.5 Eosinophils # 0.0 Basophils # 0.0 Nucleated Red Blood 0.0 Cells # Sodium Level 136 Potassium Level 3.9 Chloride Level 101 Carbon Dioxide Level 27 Anion Gap 8 Blood Urea Nitrogen 12 Creatinine 0.72 Est Glomerular > 60 Filtrat Rate mL/min Glucose Level 131 Calcium Level 7.9 L Lipase 219 Test 12/06/18 08:43 12/06/18 12:31 Bedside Glucose 156 116 Subjective 24 Hr Interval Summary Respiratory: no complaints Cardiovascular: no complaints Gastrointestinal: pain (better); No diarrhea Exam/Review of Systems Exam Vitals Vital Signs Date Temp Pulse Resp B/P (MAP) Pulse Ox O2 O2 Flow FiO2 Time Delivery Rate 12/06/18 76 16 118/58 93 Room Air 15:16 (78) 12/06/18 98.5 08:19 Intake and Output 12/05/18 12/05/18 12/06/18 1515:00 23:00 07:00 IntakeIntake Total 100 ml 550 ml 1280 ml BalanceBalance 100 ml 550 ml 1280 ml Neck: supple Respiratory: clear to auscultation Cardiovascular: regular rate and rhythm Gastrointestinal: soft Musculoskeletal: nl extremities to inspection Extremities: normal pulses Results Results 24hrs Laboratory Tests Test 12/05/18 17:25 12/05/18 22:23 12/06/18 00:43 12/06/18 04:47 Bedside Glucose 95 91 202 White Blood Count 4.1 L Red Blood Count 3.88 L Hemoglobin 11.3 L Hematocrit 35.8 L Mean Corpuscular 92.3 Volume Mean Corpuscular 29.1 Hemoglobin Mean Corpuscular 31.6 L Hemoglobin Concent Red Cell 12.0 Distribution Width Platelet Count 165 Mean Platelet Volume 10.7 H Immature 0.200 Granulocytes % Neutrophils % 48.7 Lymphocytes % 39.2 Monocytes % 11.4 H Eosinophils % 0.0 Basophils % 0.5 Nucleated Red Blood 0.0 Cells % Immature 0.010 Granulocytes # Neutrophils # 2.0 Lymphocytes # 1.6 Monocytes # 0.5 Eosinophils # 0.0 Basophils # 0.0 Nucleated Red Blood 0.0 Cells # Sodium Level 136 Potassium Level 3.9 Chloride Level 101 Carbon Dioxide Level 27 Anion Gap 8 Blood Urea Nitrogen 12 Creatinine 0.72 Est Glomerular > 60 Filtrat Rate mL/min Glucose Level 131 Calcium Level 7.9 L Lipase 219 Test 12/06/18 08:43 12/06/18 12:31 Bedside Glucose 156 116 Medications Medication Current Medications Atorvastatin Calcium (Lipitor) 80 mg HS PO Last administered on 12/05/18at 22:27; Admin Dose 80 MG; Start 12/03/18 at 21:00 Benazepril HCl (Lotensin) 40 mg DAILY PO Last administered on 12/06/18at 08:54; Admin Dose 40 MG; Start 12/03/18 at 09:00 EZETIMIBE (Zetia) 10 mg DAILY PO Last administered on 12/06/18at 08:53; Admin Dose 10 MG; Start 12/03/18 at 09:00 Diagnostic Test (Pha) (Accu-Chek) 1 ea 02 XX ; Start 12/03/18 at 02:00 Ondansetron HCl (Zofran Inj) 4 mg Q6H PRN IV NAUSEA AND/OR VOMITING Last administered on 12/05/18at 11:41; Admin Dose 4 MG; Start 12/03/18 at 01:00 Acetaminophen (Tylenol Tab) 650 mg Q6H PRN PO MILD PAIN(1-3)OR ELEVATED TEMP Last administered on 12/04/18at 08:03; Admin Dose 650 MG; Start 12/03/18 at 01:00 Sodium Chloride 1,000 ml @ 70 mls/hr [id number] IV Last administered on 12/06/18at 12:34; Admin Dose 70 MLS/HR; Start 12/03/18 at 01:00 Pantoprazole (Protonix Iv) 40 mg DAILY@06 IV Last administered on 12/06/18at 06:03; Admin Dose 40 MG; Start 12/03/18 at 06:00 Miscellaneous Information 1 ea NOTE XX ; Start 12/03/18 at 01:00 Glucose (Glutose) 15 gm Q15M PRN PO DECREASED GLUCOSE; Start 12/03/18 at 01:00 Glucose (Glutose) 22.5 gm Q15M PRN PO DECREASED GLUCOSE; Start 12/03/18 at 01:00 Dextrose (D50w Syringe) 25 ml Q15M PRN IV DECREASED GLUCOSE; Start 12/03/18 at 01:00 Dextrose (D50w Syringe) 50 ml Q15M PRN IV DECREASED GLUCOSE; Start 12/03/18 at 01:00 Glucagon (Glucagen) 1 mg Q15M PRN IM DECREASED GLUCOSE; Start 12/03/18 at 01:00 Glucose (Glutose) 15 gm Q15M PRN BUCCAL DECREASED GLUCOSE; Start 12/03/18 at 01:00 Ceftriaxone Sodium 50 ml @ 100 mls/hr Q24H IVPB Last administered on 12/05/18at 14:58; Admin Dose 100 MLS/HR; Start 12/03/18 at 14:30 Insulin Aspart (Novolog Insulin Pen) 4 unit WITH MEALS SC Last administered on 12/06/18at 08:59; Admin Dose 4 UNIT; Start 12/03/18 at 17:35 Metronidazole 100 ml @ 100 mls/hr Q8 IVPB Last administered on 12/06/18at 1 5:16; Admin Dose 100 MLS/HR; Start 12/04/18 at 09:30 Hydralazine HCl (Apresoline) 10 mg Q8 PO Last administered on 12/06/18 15:15; Admin Dose 10 MG; Start 12/04/18 at 14:00 Insulin Glargine (Lantus) 20 units DAILY@2000 SC Last administered on 12/05/18 22:36; Admin Dose 20 UNITS; Start 12/04/18 at 20:00 Amlodipine Besylate (Norvasc) 10 mg DAILY PO Last administered on 12/06/18 08:53; Admin Dose 10 MG; Start 12/05/18 at 09:00 Aspirin (Halfprin) 81 mg DAILY PO Last administered on 12/06/18 08:53; Admin Dose 81 MG; Start 12/05/18 at 09:00 Duloxetine HCl (Cymbalta) 30 mg DAILY PO Last administered on 12/06/18 08:52; Admin Dose 30 MG; Start 12/04/18 at 11:30 Gabapentin (Neurontin) 300 mg TID PO Last administered on 12/06/18 12:34; Admin Dose 300 MG; Start 12/04/18 at 13:00 Enoxaparin Sodium (Lovenox) 40 mg DAILY SC Last administered on 12/06/18 08:59; Admin Dose 40 MG; Start 12/05/18 at 09:30 Insulin Aspart (Novolog Insulin Pen) NOVOLOG *MODERATE* ALGORITHM WITH MEALS BEDTIME SC Last administered on 12/06/18 08:58; Admin Dose 2 UNIT; Start 12/06/18 at 08:00 HEATHER BURRELL MD Dec 06, 2018 17:15
[2018-12-06] MEDS: CEFTRIAXONE 1 GM/50 ML (PMX) 50 ML IVPB SCH (17:43)
[2018-12-06 20:00] VITALS: BP 104/52; PULSE 72; RESP 18
[2018-12-06] MEDS: ATORVASTATIN 80 MG TAB PO SCH (20:25)
[2018-12-06] MEDS: INSULIN GLARGINE [LANTus] (100 UNITS/ML) SYG SC SCH (20:29)
[2018-12-07] MEDS: SOD CHLORIDE 0.9% 1,000 ML IV SCH ×2 (01:29→09:44)
[2018-12-07 02:00] VITALS: BP 111/50; PULSE 74; RESP 18
[2018-12-07] MEDS: ACCU-CHEK XX SCH (02:00)
[2018-12-07] MEDS: metroNIDAZOLE 500 MG/NS (PMX) 100 ML IVPB SCH (06:16)
[2018-12-07] MEDS: PANTOPRAZOLE 40 MG INJ IV SCH (06:16)
--- NOTE | 2018-12-07 07:44 | CONS ---
Assessment/Plan Assessment/Plan Hospital Course (Demo Recall) 58 y female Interval hx: Lipase wnl. Blood sugars in 200s consistently. Abdominal pain resolved. No N/V. No evidence of GI bleeding 1. Abdominal pain with mild elevation of lipase. -resolved 2. Diabetes mellitus. 3. Renal failure secondary to dehydration. 4. Hypertension. 5. Hyperlipidemia. 6. Obesity. 7. Peripheral neuropathy. 8. Leukopenia 9. Mild anemia with downward trend MRCP 12/06 is unremarkable, no pancreatitis Plan Advance diet as tolerated, carb controlled Optimize blood sugar If possible avoid Januvia and hydrochlorothiazide which are both known to cause pancreatitis Pt examined and plan of care discussed with Dr Sanchez Consultation Date/Type/Reason Admit Date/Time Dec 02, 2018 at 23:00 Initial Consult Date Date/Time of Note DATE: 12/07/18 TIME: 07:34 Exam/Review of Systems Exam Vitals Vital Signs Date Temp Pulse Resp B/P (MAP) Pulse Ox O2 O2 Flow FiO2 Time Delivery Rate 12/07/18 98.3 74 18 111/50 90 02:00 (70) 12/06/18 Room Air 15:16 Intake and Output 12/06/18 12/06/18 12/07/18 1515:00 23:00 07:00 IntakeIntake Total 640 ml 930 ml 940 ml BalanceBalance 640 ml 930 ml 940 ml Results Result Diagram: 12/06/18 0447 12/06/18 0447 Results 24hrs Laboratory Tests Test 12/06/18 08:43 12/06/18 12:31 12/06/18 17:42 12/06/18 20:24 Bedside Glucose 156 116 182 205 Test 12/07/18 03:57 Bedside Glucose 142 Medications Medication Current Medications Atorvastatin Calcium (Lipitor) 80 mg HS PO Last administered on 12/06/18at 20:25; Admin Dose 80 MG; Start 12/03/18 at 21:00 Benazepril HCl (Lotensin) 40 mg DAILY PO Last administered on 12/06/18at 08:54; Admin Dose 40 MG; Start 12/03/18 at 09:00 EZETIMIBE (Zetia) 10 mg DAILY PO Last administered on 12/06/18at 08:53; Admin Dose 10 MG; Start 12/03/18 at 09:00 Diagnostic Test (Pha) (Accu-Chek) 1 ea 02 XX ; Start 12/03/18 at 02:00 Ondansetron HCl (Zofran Inj) 4 mg Q6H PRN IV NAUSEA AND/OR VOMITING Last administered on 12/05/18at 11:41; Admin Dose 4 MG; Start 12/03/18 at 01:00 Acetaminophen (Tylenol Tab) 650 mg Q6H PRN PO MILD PAIN(1-3)OR ELEVATED TEMP Last administered on 12/04/18at 08:03; Admin Dose 650 MG; Start 12/03/18 at 01:00 Sodium Chloride 1,000 ml @ 70 mls/hr [id number] IV Last administered on 12/06/18at 12:34; Admin Dose 70 MLS/HR; Start 12/03/18 at 01:00 Pantoprazole (Protonix Iv) 40 mg DAILY@06 IV Last administered on 12/07/18at 06:16; Admin Dose 40 MG; Start 12/03/18 at 06:00 Miscellaneous Information 1 ea NOTE XX ; Start 12/03/18 at 01:00 Glucose (Glutose) 15 gm Q15M PRN PO DECREASED GLUCOSE; Start 12/03/18 at 01:00 Glucose (Glutose) 22.5 gm Q15M PRN PO DECREASED GLUCOSE; Start 12/03/18 at 01:00 Dextrose (D50w Syringe) 25 ml Q15M PRN IV DECREASED GLUCOSE; Start 12/03/18 at 01:00 Dextrose (D50w Syringe) 50 ml Q15M PRN IV DECREASED GLUCOSE; Start 12/03/18 at 01:00 Glucagon (Glucagen) 1 mg Q15M PRN IM DECREASED GLUCOSE; Start 12/03/18 at 01:00 Glucose (Glutose) 15 gm Q15M PRN BUCCAL DECREASED GLUCOSE; Start 12/03/18 at 01:00 Ceftriaxone Sodium 50 ml @ 100 mls/hr Q24H IVPB Last administered on 12/06/18at 17:43; Admin Dose 100 MLS/HR; Start 12/03/18 at 14:30 Insulin Aspart (Novolog Insulin Pen) 4 unit WITH MEALS SC Last administered on 12/06/18at 17:44; Admin Dose 4 UNIT; Start 12/03/18 at 17:35 Metronidazole 100 ml @ 100 mls/hr Q8 IVPB Last administered on 12/07/18 06:16; Admin Dose 100 MLS/HR; Start 12/04/18 at 09:30 Hydralazine HCl (Apresoline) 10 mg Q8 PO Last administered on 12/07/18 06:17; Admin Dose 10 MG; Start 12/04/18 at 14:00 Insulin Glargine (Lantus) 20 units DAILY@2000 SC Last administered on 12/06/18 20:29; Admin Dose 20 UNITS; Start 12/04/18 at 20:00 Amlodipine Besylate (Norvasc) 10 mg DAILY PO Last administered on 12/06/18 08:53; Admin Dose 10 MG; Start 12/05/18 at 09:00 Aspirin (Halfprin) 81 mg DAILY PO Last administered on 12/06/18 08:53; Admin Dose 81 MG; Start 12/05/18 at 09:00 Duloxetine HCl (Cymbalta) 30 mg DAILY PO Last administered on 12/06/18 08:52; Admin Dose 30 MG; Start 12/04/18 at 11:30 Gabapentin (Neurontin) 300 mg TID PO Last administered on 12/06/18 20:25; Admin Dose 300 MG; Start 12/04/18 at 13:00 Enoxaparin Sodium (Lovenox) 40 mg DAILY SC Last administered on 12/06/18 08:59; Admin Dose 40 MG; Start 12/05/18 at 09:30 Insulin Aspart (Novolog Insulin Pen) NOVOLOG *MODERATE* ALGORITHM WITH MEALS BEDTIME SC Last administered on 12/06/18 20:28; Admin Dose 1 UNIT; Start 12/06/18 at 08:00 HUNAG HUYNH Dec 07, 2018 07:44
[2018-12-07 08:03] VITALS: BP 103/46; PULSE 68; RESP 18
[2018-12-07] MEDS: INSULIN ASPART [NOVOLOG] 3 ML PEN SC SCH ×4 (08:20→12:11)
[2018-12-07] MEDS: ENOXAPARIN 40 MG/0.4 ML SYG SC SCH (08:21)
[2018-12-07] MEDS: EZETIMIBE 10 MG TAB PO SCH (08:22)
[2018-12-07] MEDS: ASPIRIN (EC) 81 MG TAB PO SCH (08:22)
[2018-12-07] MEDS: DULOXETINE 30 MG CAP DR PO SCH (08:22)
[2018-12-07 09:44] VITALS: BP 110/59; PULSE 70
[2018-12-07] MEDS: AMLODIPINE 10 MG TAB PO SCH (09:46)
[2018-12-07] MEDS: BENAZEPRIL 40 MG TAB PO SCH (09:46)
[2018-12-07] MEDS: GABAPENTIN 300 MG CAP PO SCH ×2 (09:46→12:35)
--- NOTE | 2018-12-07 12:33 | PDOCDIS ---
Discharge Instructions DIAGNOSIS Discharge Diagnosis Pancreatitis dehydration CONDITION [id number] Patient Condition: [id number] Fair HOME CARE INSTRUCTIONS: [id number] Diet Instructions: [id number] Modified Fat ACTIVITY: [id number] Activity Restrictions: Iubio4m Slowly Increase Activity Rest between Activity Avoid heavy lifting FOLLOW UP/APPOINTMENTS Follow-up Plan f/u PCP in 1-2 weeks f/u GI in 2-3 weeks Return to ER if has abdominal pain/fevers/chills ABIGAIL SOTO MD Dec 07, 2018 12:33
[2018-12-07] MEDS ORDERED: CIPR-193 PO (12:36)
[2018-12-07] MEDS ORDERED: HYDR-3670 PO (12:36)
[2018-12-07] MEDS ORDERED: BENA40TA56 PO (12:36)
[2018-12-07] MEDS ORDERED: METR250T PO (12:36)
--- NOTE | 2018-12-08 02:32 | DS ---
DATE OF ADMISSION: 12/02/2018 DATE OF DISCHARGE: 12/07/2018 HISTORY OF PRESENTING ILLNESS AND HOSPITAL COURSE: This is a 58-year-old female with past medical hi story of diabetes, hypertension, hyperlipidemia, presented to [facility] after being brought by the viktoriya pryor. According to the patient, she is coughing and having pain in the back. She has been coughing a lot. She had some episode of nausea and vomiting yesterday at [facility] where they chec ked for troponin which was negative. She had a sodium of 131, potassium 4.2, chloride 92, bicarbonat e 24, BUN of 25, creatinine 1.49. Lipase however was elevated at 96. UA showed 500 glucose. Nitrit e was negative. White count was 6.0, hemoglobin 13.2. The patient had a CT of the abdomen and pelvi s that showed possible noncalcified and calcified granuloma in both lung bases, considerable stool di ffusely throughout the colon, some basilar atelectasis. She was sent here due to insurance reasons d ue to dehydration. On arrival to [facility], the patient had chest x-ray that show ed no radiographic evidence of acute cardiopulmonary process. Her lipase was checked which was 389. The patient was kept on n.p.o. and was started on IV fluids. The patient was seen by GI consultatio n with Dr. Sanchez. Their recommendations were followed. The patient was having fevers of 102. Abdo chago ultrasound was done that showed normal pancreas, mildly dilated pancreatic duct. Correlation w ith triple phase protocol CT. CBD was 4.9 mm. She had an MRCP of the abdomen that showed no acute a bnormalities, hepatic steatosis, no evidence of choledocholithiasis. The patient was treated with Ci pro and Flagyl and was clinically feeling better every day. The patient was advanced to regular diet and tolerated without any abdominal pain, nausea, vomiting. Blood cultures were sent that were nega tive. Currently, the patient is feeling much better and per Dr. Sanchez is stable to be discharged ho ca. FINAL DISCHARGE DIAGNOSES: 1. Abdominal pain, mild elevation of lipase, could be secondary to pancreatitis, fevers of 102, reso lved. 2. Diabetes. 3. Acute kidney injury, likely secondary to dehydration. 4. Hypertension. 5. Hyperlipidemia. 6. Obesity. 7. Peripheral neuropathy. 8. Status post hysterectomy. DISCHARGE CONDITION: Stable. DISCHARGE DIET: Regular, carb controlled 2-gram sodium diet. DISCHARGE MEDICATIONS: 1. Amlodipine 10 mg p.o. daily. 2. Aspirin 81. 3. Benazepril 40. 4. Cipro 250 b.i.d. for 6 days. 5. Flagyl 250 mg p.o. q.8 for 6 days. 6. Hydralazine 10 mg p.o. q.8. Parameters were written to hold BP meds if SBP is less than 110. Continue with: 1. Aspirin 81. 2. Atorvastatin 80. 3. Duloxetine 30. 4. Iron sulfate 325 t.i.d. 5. Gabapentin 300 t.i.d. 6. Insulin Lantus 55 at bedtime. The patient was instructed to hold hydrochlorothiazide and Januvia, which can cause pancreatitis. Dictated By: ABIGAIL ATKINSON/UYLI Conf#: [id number] DID#: [id number] CC: HEATHER BURRELL MD; MANUEL SANCHEZ MD;*End*
== END 2018-12-07 14:13 | disposition home or self-care (01) | DRG 439 ==
LOC: MS1 23:00 → PP2 23:15
PROVIDERS: ADMIT Internal Medicine Nephrology; ATTEND Internal Medicine Nephrology
DX: K85.90 Acute pancreatitis without necrosis or infection, unspecified (principal); N17.9 Acute kidney failure, unspecified; I10 Essential (primary) hypertension; E66.9 Obesity, unspecified; E86.0 Dehydration; E11.42 Type 2 diabetes mellitus with diabetic polyneuropathy; E78.5 Hyperlipidemia, unspecified; Z68.38 Body mass index [BMI] 38.0-38.9, adult; Z90.710 Acquired absence of both cervix and uterus; Z79.4 Long term (current) use of insulin
CPT/HCPCS: 71045; 74181; 76705; 80048; 80053; 81001; 82962; 83036; 83690; 83735; 84100; 85025; 85610; 85730; 87040; 87081; C9113; J0696; J1650; J1815; J2405; J7030